=== PATIENT | female | born 1960 | race Hispanic/Latino ===

== ENCOUNTER → 2023-03-07 | Outpatient (REF) | payer MEDICARE ==
[~2023-03-07] MED LIST: CIPRO500 MG PO; TYLENOL WITH C1 EACH PO
== END ==
LOC: MAMMO 09:01
PROVIDERS: ATTEND Student in an Organized Health Care Education/Training Program
DX: Z12.31 Encounter for screening mammogram for malignant neoplasm of breast (principal); M81.0 Age-related osteoporosis without current pathological fracture
CPT/HCPCS: 77067; 77080

== ENCOUNTER → 2024-06-03 | Outpatient (REF) | payer OTHER | LOC: MAMMO 05-07 10:59 | PROVIDERS: ATTEND Internal Medicine | DX: Z12.31 Encounter for screening mammogram for malignant neoplasm of breast (principal) | CPT/HCPCS: 77067 ==